=== PATIENT | female | born 1930 | race Caucasian/White ===

== ENCOUNTER 2017-10-22 07:01 | Day surgery (SDC) | payer BC ==
[2017-10-22] MEDS: CEFAZOLIN 2 GM/50 ML (PMX) 50 ML IVPB (07:00)
[2017-10-22] MEDS: SOD CHLORIDE 0.9% 1,000 ML IV (07:00)
[2017-10-22] MEDS: hydrALAzine 20 MG INJ IV ×2 (08:11→10:24)
[2017-10-22] MEDS ORDERED: BUPIVACAINE 0.25% (MPF) 30 ML INJ (08:54)
[2017-10-22] MEDS ORDERED: ONDANSETRON 4 MG INJ ×2 (09:12→10:08)
[2017-10-22] MEDS ORDERED: ROCURONIUM 50 MG INJ (09:12)
[2017-10-22] MEDS ORDERED: CEFAZOLIN 1 GM INJ (09:12)
[2017-10-22] MEDS ORDERED: NEOSTIGMINE 3 MG/3 ML SYRINGE (09:12)
[2017-10-22] MEDS ORDERED: PROPOFOL 20 ML (09:12)
[2017-10-22] MEDS ORDERED: GLYCOPYRROLATE 0.4 MG INJ (09:12)
[2017-10-22] MEDS ORDERED: MIDAZOLAM 1 MG/ML 2 ML INJ (09:12)
[2017-10-22] MEDS ORDERED: DEXAMETHASONE 4 MG/ML 1 ML INJ (09:12)
[2017-10-22] MEDS ORDERED: FENTAnyl 50 MCG/ML VIAL (09:12)
[2017-10-22] MEDS: BUPIVACAINE 0.25% (MPF) 30 ML INJ INJ ×2 (09:26)
[2017-10-22] MEDS ORDERED: HYDROmorphONE 1 MG/5 ML IV SYRINGE IV (09:30)
[2017-10-22] MEDS ORDERED: ALBUTEROL 0.083% (NEB) 2.5 MG/3 ML AMP HHN (09:30)
[2017-10-22] MEDS ORDERED: MIDAZOLAM 1 MG/ML 2 ML INJ IV (09:30)
[2017-10-22] MEDS ORDERED: EPHEDrine SULFATE 50 MG/5 ML SYG IV (09:30)
[2017-10-22] MEDS ORDERED: OXYCODONE/ACETAMINOPHEN (5/325) TAB PO (09:30)
[2017-10-22] MEDS ORDERED: DIPHENHYDRAMINE 50 MG INJ IV (09:30)
[2017-10-22] MEDS ORDERED: IPRATROPIUM (NEB) 0.5 MG/2.5 ML AMP HHN (09:30)
[2017-10-22] MEDS ORDERED: TRIMETHOBENZAMIDE 100 MG/ML VIAL IM (09:30)
[2017-10-22] MEDS ORDERED: MEPERIDINE 25 MG INJ IV (09:30)
[2017-10-22] MEDS ORDERED: FENTAnyl 50 MCG/ML VIAL IV ×3 (09:30)
[2017-10-22] MEDS ORDERED: LABETALOL HCL 20MG INJ IV (09:30)
[2017-10-22] MEDS ORDERED: SUGAMMADEX SODIUM 200 MG/2 ML VIAL IV (09:40)
[2017-10-22] MEDS ORDERED: HYDROCODONE/APAP (5/325) TAB PO (10:00)
[2017-10-22] MEDS ORDERED: HYDROmorphONE 1 MG/ML SYG (10:08)
[2017-10-22] MEDS: HYDROmorphONE 1 MG/5 ML IV SYRINGE IV ×2 (10:24→10:49)
[2017-10-22] MEDS: ONDANSETRON 4 MG INJ IV ×2 (10:25→12:28)
[2017-10-22] MEDS: OXYCODONE/ACETAMINOPHEN (5/325) TAB PO (11:15)
== END 2017-10-22 13:15 | disposition home or self-care (01) ==
LOC: SDS 07:01
DX: K80.10 Calculus of gallbladder with chronic cholecystitis without obstruction (principal); E11.9 Type 2 diabetes mellitus without complications; I10 Essential (primary) hypertension
CPT/HCPCS: 47562; 88304